=== PATIENT | male | born 1980 | race Caucasian/White ===

== ENCOUNTER 2018-04-22 14:44 | Emergency (ER) | payer BC ==
[~2018-04-22] VITALS: Ht 180.3 cm; Wt 104.3 kg
[2018-04-22] MEDS ORDERED: ROBAXIN500 MG PO (16:00)
[2018-04-22 16:08] VITALS: BP 126/95
== END 2018-04-22 16:09 | disposition home or self-care (01) ==
LOC: M.ERS 14:44
DX: M43.6 Torticollis (principal)

== ENCOUNTER 2021-02-11 00:08 | Emergency (ER) | payer BC ==
[~2021-02-11] VITALS: Ht 180.3 cm; Wt 106.6 kg
[~2021-02-11 00:08] MED LIST: ROBAXIN500 MG PO
[2021-02-11 00:28] VITALS: BP 142/96
[2021-02-11] MEDS ORDERED: LISINOPRIL10 MG PO (00:30)
== END 2021-02-11 01:26 | disposition home or self-care (01) ==
LOC: M.ERS 00:08
DX: U07.1 COVID-19 (principal); R68.83 Chills (without fever); R43.9 Unspecified disturbances of smell and taste; M79.18 Myalgia, other site; Z79.899 Other long term (current) drug therapy